=== PATIENT | male | born 1995 | race Hispanic/Latino ===

== ENCOUNTER 2020-01-15 18:53 | Emergency (ER) | payer MEDICAID | END 2020-01-15 19:44 | disposition home or self-care (01) | LOC: EDH 18:53 | DX: J45.20 Mild intermittent asthma, uncomplicated (principal); R06.00 Dyspnea, unspecified; F43.0 Acute stress reaction ==

== ENCOUNTER 2020-01-20 20:24 | Emergency (ER) | payer MEDICAID | END 2020-01-20 21:15 | disposition home or self-care (01) | LOC: EDH 20:24 | DX: J45.20 Mild intermittent asthma, uncomplicated (principal); F41.9 Anxiety disorder, unspecified; F31.9 Bipolar disorder, unspecified; Z87.891 Personal history of nicotine dependence | CPT/HCPCS: 99281 ==

== ENCOUNTER 2022-09-18 19:31 | Emergency (ER) | payer MEDICAID ==
[~2022-09-18] VITALS: Ht 170.2 cm; Wt 72.6 kg
[~2022-09-18 19:31] MED LIST: DOXY100V2 IV
[2022-09-18 20:10] VITALS: BP 138/95
== END 2022-09-18 21:04 | disposition home or self-care (01) ==
LOC: EDH 19:31
DX: U07.1 COVID-19 (principal); J45.909 Unspecified asthma, uncomplicated

== ENCOUNTER 2023-04-24 15:02 | Emergency (ER) | payer MEDICAID ==
[~2023-04-24] VITALS: Ht 170.2 cm; Wt 72.6 kg
[2023-04-24 15:03] VITALS: BP 152/84; PULSE 106; RESP 20
[2023-04-24 18:14] LABS: APPEARANCE,URINE TURBID (CLEAR); BILIRUBIN,URINE NEGATIVE (NEGATIVE); COLOR,URINE YELLOW (YELLOW); GLUCOSE, URINE (UA) NEGATIVE (NEGATIVE); KETONES,URINE NEGATIVE (NEGATIVE); LEUKOCYTE ESTERASE ,URINE 500 Leu/uL (NEGATIVE); NITRATE,URINE NEGATIVE (NEGATIVE); OCCULT BLOOD,URINE SMALL (NEGATIVE); PH,URINE 6.5 (5.0-8.0); PROTEIN,URINE 100 mg/dL (NEGATIVE)
[2023-04-24 18:22] LABS: ADD UA MICROSCOPIC YES
[2023-04-24] MEDS ORDERED: DOXY100T2 PO (18:30)
[2023-04-24] MEDS ORDERED: CEFTRIAXONE 1G VIAL IM ONE (18:30)
[2023-04-24] MEDS ORDERED: AZITHROMYCIN 250 MG TABLET PO ONE (18:30)
[2023-04-24 18:43] LABS: BACTERIA,URINE RARE /HPF (None Seen); MUCUS,URINE MOD LPF (None Seen); UNCLASSIFIED CRYSTAL 59 /HPF (None Seen); WBC CLUMP FEW /HPF (0-1); YEAST,URINE BUDDING FEW /HPF (None Seen)
== END 2023-04-24 18:36 | disposition home or self-care (01) ==
LOC: EDH 15:02
DX: N39.0 Urinary tract infection, site not specified (principal); J45.909 Unspecified asthma, uncomplicated; Z20.2 Contact with and (suspected) exposure to infections with a predominantly sexual mode of transmission
CPT/HCPCS: 99283; 87088; 87797; 87486; 81001; 96372; J0696

== ENCOUNTER 2023-08-09 15:26 | Emergency (ER) | payer MEDICAID ==
[~2023-08-09 15:26] MED LIST changes: +DOXY100T2 PO
== END 2023-08-09 15:36 | disposition left against medical advice (07) ==
LOC: EDH 15:26
DX: R52 Pain, unspecified (principal); Z53.21 Procedure and treatment not carried out due to patient leaving prior to being seen by health care provider
CPT/HCPCS: 99281

== ENCOUNTER 2025-05-22 23:10 | Emergency (ER) | payer MEDICAID ==
[~2025-05-22] VITALS: Ht 170.2 cm; Wt 82.1 kg
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
[2025-05-22 23:42] VITALS: BP 142/97; PULSE 104; RESP 20; TEMP 98.4; O2SAT 99
--- NOTE | 2025-05-23 00:48 | HMCIMG ---
EXAM: CR Right Ankle, 3 views CLINICAL HISTORY: Foreign body. COMPARISON: None provided. FINDINGS: No acute fracture or aggressive appearing osseous lesion. Joint spaces are within normal limits. No radiographic evidence of joint effusion. There are metallic foreign bodies around the posterior soft tissue of the ankle, the largest of which measures up to 1 cm. IMPRESSION: No acute bony abnormality is evident. Metallic foreign bodies in the posterior ankle. /[place]
[2025-05-23] MEDS ORDERED: CEPH500T PO (01:07)
== END 2025-05-23 01:15 | disposition home or self-care (01) ==
LOC: EDH 23:10
DX: S90.551A Superficial foreign body, right ankle, initial encounter (principal); Z79.899 Other long term (current) drug therapy; W34.09XA Accidental discharge from other specified firearms, initial encounter; Y93.89 Activity, other specified; Y92.89 Other specified places as the place of occurrence of the external cause; Y99.8 Other external cause status
CPT/HCPCS: 73610; 99283